=== PATIENT | female | born 1990 | race African-American/Black ===

== ENCOUNTER 2018-05-21 22:09 | Emergency (ER) | payer MEDICAID ==
[~2018-05-21] VITALS: Ht 162.6 cm; Wt 122.7 kg
[2018-05-21 22:14] VITALS: TEMP 98
[2018-05-21 22:57] LABS: COLLECTION METHOD CLEAN CATCH
[2018-05-21 23:00] LABS: BASO # 0.2 (0.0-0.2); BASO % 1.4 % (0.0-2.0); EOS # 0.6 (0.0-0.7); EOS % 5.2 % (0-4.0); GRAN # 5.8 (1.4-6.5); GRAN % 54.8 % (42.2-75.2); HEMOGLOBIN 10.9 g/dl (12.5-16.0); LYMPH # 3.4 (1.2-3.4); MEAN CELL VOLUME 76 fl (80.0-100.0); MEAN CORPUSCULAR HEMOGLOBIN 23 pg (27.0-31.0); MEAN CORPUSCULAR HGB CONC 30 g/dl (33.0-37.0); MONO # 0.7 (0.1-0.6); MONO % 6.3 % (1.7-9.3); PLATELET COUNT 343 K/mm3 (130-400); RED BLOOD COUNT 4.77 M/mm3 (4.10-5.30); REDCELL DISTRIBUTION WIDTH-CV 13.9 % (11.5-14.5)
[2018-05-21 23:01] LABS: HEMATOCRIT 36.2 % (37.0-47.0)
[2018-05-21 23:07] LABS: MUCOUS Present /lpf; PH 5 (5-8); URINE APPEARANCE Cloudy; URINE BACTERIA Many /hpf; URINE BILIRUBIN Negative (NEGATIVE); URINE BLOOD 1+ (NEGATIVE); URINE COLOR Yellow; URINE GLUCOSE Negative (NEGATIVE); URINE KETONE Negative (NEGATIVE); URINE LEUKOCYTE ESTERASE 1+ (NEGATIVE); URINE NITRATE Positive (NEGATIVE); URINE PROTEIN(semi-quant) Negative (NEGATIVE); URINE UROBILINOGEN Negative (NEGATIVE)
[2018-05-21 23:14] LABS: C-REACTIVE PROTEIN 2.8 mg/dL (0.0-0.9)
[2018-05-21 23:37] LABS: ALBUMIN 3.9 gm/dL (3.5-5.0); BILIRUBIN,TOTAL 0.4 mg/dL (0.0-1.0); CALCIUM 8.9 mg/dL (8.4-10.2); CREATININE, serum 0.77 mg/dL (0.52-1.25); POTASSIUM 3.9 mmol/L (3.4-5.0); TOTAL PROTEIN 7.7 gm/dL (6.4-8.2)
[2018-05-21] MEDS ORDERED: NATURAL IRON65 MG PO (23:45)
[2018-05-21] MEDS ORDERED: CEPHALEXIN500 M1 PO (23:53)
[2018-05-22 01:10] VITALS: BP 104/50; PULSE 80
== END 2018-05-22 01:10 | disposition home or self-care (01) ==
LOC: COL.ER 22:09
PROVIDERS: Family Medicine
DX: K43.9 Ventral hernia without obstruction or gangrene (principal)
CPT/HCPCS: J1170; J2405; J3010; J7030; Q9967

== ENCOUNTER 2018-06-01 10:30 | Day surgery (SDC) | payer MEDICAID ==
[2018-06-01] VITALS (9 sets, daily range): BP systolic 92–118; BP diastolic 38–63; PULSE 82–104; TEMP 97.5–98.7
[~2018-06-01] VITALS: Ht 162.6 cm; Wt 146.0 kg
[~2018-06-01 10:30] MED LIST: CEPHALEXIN500 M1 PO; NATURAL IRON65 MG PO
--- NOTE | 2018-06-01 11:19 | NUR ---
TO RM AT 1041- CALL LIGHT IN REACH NO ONE WITH PATIENT AT THIS TIME. PATIENT TALKING ON CELL PHONE WITH SISTER
[2018-06-01] MEDS ORDERED: MOTRIN 600600 MG/TAB PO (14:33)
[2018-06-01] MEDS ORDERED: COLACE 100100 MG/CAP PO (14:33)
[2018-06-01] MEDS ORDERED: PERCOCET 325 MG1 TA2 PO (14:33)
--- NOTE | 2018-06-01 15:30 | NUR ---
TO RM 5 PER CART FROM PACU. OPENED EYES AND FELL BACK TO SLEEP. NO DISTRESS NOTED, NO GRIMACE OF PAIN NOTED. 02 AT 2L PER NC, O2 SAT 94%. GHOTRA SET DRESSINGS CLEAN DRY INTACT.
--- NOTE | 2018-06-01 15:45 | NUR ---
AROUSES TO NAME AND FALLS BACK TO SLEEP. CONTINUES TO WEAR O2 AT 2L.
--- NOTE | 2018-06-01 16:00 | NUR ---
MORE AWAKE AND TOOK 2 SIPS OF WATER AND FELL BACK TO SLEEP.
--- NOTE | 2018-06-01 16:15 | NUR ---
TOOK A FEW MORE SIPS. REFUSES ANYTHING TO EAT 02 SAT 96% ON ROOM AIR. PATIENT TALKING ON CELL PHONE.
--- NOTE | 2018-06-01 16:45 | NUR ---
PATIENT RECEIVED PERCOCET 5MG 2 TABS
--- NOTE | 2018-06-01 17:06 | NUR ---
PATIENT TALKING ON PHONE. PATIENT STATED PAIN IS "BETTER" ATE 2PACKETS OF CRACKERS AND 2 GLASSES OF WATER.
--- NOTE | 2018-06-01 17:42 | NUR ---
UP AMBULATED TO BATHROOM SLOW STEADY STEPS. VOIDED AND AMBULATED BACK TO BED. ONCE BACK TO BE, REQUESTED TO LAY BACK DOWN. RECEIVED ADITI CRACKERS. TALKING ON PHONE AND EATING CRACKERS.
--- NOTE | 2018-06-01 18:06 | NUR ---
PATIENT STATED PAIN IS BETTER NOW THAT SHE IS RESTING. EATING ADITI CRACKERS AND TOLERATED WELL. 02 SAT 98% ON ROOM AIR.
--- NOTE | 2018-06-01 18:25 | NUR ---
GHOTRA SET OVER INCISION CLEAN DRY INTACT. NO BULDGING NOTED AT SITE. I ASK PATIENT HOW SHE WAS FEELING.IF SHE WANTED TO TRY TO GO HOME OR NEEDED TO REST. PATIENT STATED " I AM READY TO GO HOME" RECEIVED DISCHARGE INSTRUCTIONS AND VERBALIZED UNDERSTANDING DISCONTINUED IV AND INT.
--- NOTE | 2018-06-01 18:30 | NUR ---
ASSISTED PATIENT DRESSED INTO HER STREET CLOTHES.
--- NOTE | 2018-06-01 18:49 | NUR ---
DISCHARGED PER BY NURSING STAFF TO PRIVATE CAR IN CARE OF [facility]. PATIENT TRANSFERED FROM TO [facility] WITH ASSIST AND TOLERATED WELL.
== END 2018-06-01 18:52 | disposition home or self-care (01) ==
LOC: SDCO 10:30
DX: K43.9 Ventral hernia without obstruction or gangrene (principal); D64.9 Anemia, unspecified; E66.9 Obesity, unspecified; Z68.37 Body mass index [BMI] 37.0-37.9, adult
CPT/HCPCS: C1781; J0690; J1100; J1170; J1885; J2250; J2270; J2405; J2704; J3010; J7120

== ENCOUNTER 2018-12-26 16:20 | Emergency (ER) | payer MEDICAID ==
[~2018-12-26] VITALS: Ht 162.6 cm; Wt 151.8 kg
[~2018-12-26 16:20] MED LIST changes: +COLACE 100100 MG/CAP PO; +MOTRIN 600600 MG/TAB PO; +PERCOCET 325 MG1 TA2 PO
[2018-12-26 16:24] VITALS: TEMP 98.6
[2018-12-26 16:56] LABS: BASO # 0.1 (0.0-0.2); BASO % 0.9 % (0.0-2.0); EOS # 0.2 (0.0-0.7); EOS % 1.9 % (0-4.0); GRAN # 6.1 (1.4-6.5); GRAN % 60.5 % (42.2-75.2); LYMPH % 29.8 % (20.0-51.0); MEAN CELL VOLUME 76 fl (80.0-100.0); MEAN CORPUSCULAR HEMOGLOBIN 23 pg (27.0-31.0); MEAN CORPUSCULAR HGB CONC 30 g/dl (33.0-37.0); MEAN PLATELET VOLUME 11.8 fl (7.4-10.4); MONO # 0.7 (0.1-0.6); MONO % 6.4 % (1.7-9.3); PLATELET COUNT 327 K/mm3 (130-400); RED BLOOD COUNT 4.32 M/mm3 (4.10-5.30); REDCELL DISTRIBUTION WIDTH-CV 14.2 % (11.5-14.5)
[2018-12-26 17:04] LABS: ALANINE AMINOTRANSFERASE < 6 U/L (9-52); ALBUMIN 4.3 gm/dL (3.5-5.0); ALKALINE PHOSPHATASE 75 U/L (50-136); ANION GAP 10 mmol/L (7-16); AST,SGOT 29 U/L (15-37); BILIRUBIN,TOTAL 0.7 mg/dL (0.0-1.0); BLOOD UREA NITROGEN 8 mg/dL (7-17); C-REACTIVE PROTEIN 1.8 mg/dL (0.0-0.9); CALCIUM 9.1 mg/dL (8.4-10.2); CARBON DIOXIDE 21 mmol/L (22-30); CHLORIDE 105 mmol/L (98-107); CREATININE, serum 0.63 (0.52-1.25); GLUCOSE 107 mg/dL (74-106); POTASSIUM 4.2 mmol/L (3.4-5.0); SODIUM 136 mmol/L (137-145); TOTAL PROTEIN 8.3 gm/dL (6.4-8.2)
[2018-12-26 17:42] LABS: COLLECTION METHOD CLEAN CATCH
[2018-12-26 18:05] LABS: MUCOUS Present /lpf; PH 5 (5-8); URINE APPEARANCE Cloudy; URINE BACTERIA Occasional /hpf; URINE BILIRUBIN Negative (NEGATIVE); URINE BLOOD Negative (NEGATIVE); URINE COLOR Amber; URINE GLUCOSE Negative (NEGATIVE); URINE KETONE Negative (NEGATIVE); URINE LEUKOCYTE ESTERASE 1+ (NEGATIVE); URINE NITRATE Negative (NEGATIVE); URINE PROTEIN(semi-quant) Negative (NEGATIVE); URINE RBC None Seen /hpf; URINE UROBILINOGEN >=4.0 mg/dL (NEGATIVE)
[2018-12-26] MEDS ORDERED: MACROBID 1100 MG/CAP PO (18:59)
[2018-12-26] MEDS ORDERED: ZOFRAN ODT4 MG PO (19:02)
[2018-12-26 19:06] VITALS: BP 119/75; PULSE 77
== END 2018-12-26 19:08 | disposition home or self-care (01) ==
LOC: COL.ER 16:20
PROVIDERS: Emergency Medicine
DX: O23.91 Unspecified genitourinary tract infection in pregnancy, first trimester (principal); Z3A.01 Less than 8 weeks gestation of pregnancy
CPT/HCPCS: J2405; J3010; J7030

== ENCOUNTER 2019-02-27 14:54 | Emergency (ER) | payer MEDICAID ==
[~2019-02-27] VITALS: Ht 162.6 cm; Wt 148.6 kg
[~2019-02-27 14:54] MED LIST changes: +MACROBID 1100 MG/CAP PO; +ZOFRAN ODT4 MG PO
[2019-02-27 15:01] VITALS: TEMP 97.7
[2019-02-27 16:24] VITALS: BP 135/75; PULSE 95
== END 2019-02-27 16:25 | disposition home or self-care (01) ==
LOC: COL.ER 14:54
DX: O9A.212 Injury, poisoning and certain other consequences of external causes complicating pregnancy, second trimester (principal); S80.11XA Contusion of right lower leg, initial encounter; Z3A.16 16 weeks gestation of pregnancy; R40.2412 Glasgow coma scale score 13-15, at arrival to emergency department; W01.0XXA Fall on same level from slipping, tripping and stumbling without subsequent striking against object, initial encounter

== ENCOUNTER 2019-07-28 19:40 | Outpatient (CLI) | payer MEDICAID ==
[~2019-07-28] VITALS: Ht 160 cm; Wt 144.5 kg
--- NOTE | 2019-07-28 19:30 | NUR ---
HERE WITH C/O PELVIC PRESSURE. HX OF 1 HOUR LABOR. SVE 1/LONG/POST. EFM ON. INTACT [facility] NO COVID RISKS DENIES ABD PAIN OR CTXS NONE RECORDING AT 2010
[2019-07-28 19:40] VITALS: BP 114/63; PULSE 103; TEMP 98.2
[2019-07-28 20:18] VITALS: BP 114/63; PULSE 103; TEMP 98.2
== END 2019-07-28 20:37 | disposition home or self-care (01) ==
LOC: LDRO 19:40 → LDR 19:40 → LDRO 20:37
DX: O26.893 Other specified pregnancy related conditions, third trimester (principal); Z3A.37 37 weeks gestation of pregnancy
CPT/HCPCS: OP

== ENCOUNTER 2019-07-31 06:43 | Inpatient (IN) | payer MEDICAID ==
[2019-07-31] VITALS (62 sets, daily range): BP systolic 81–122; BP diastolic 42–74; PULSE 82–105; TEMP 97.9–98.7
[~2019-07-31] VITALS: Ht 162.7 cm; Wt 144.5 kg
[2019-07-31 07:49] LABS: BASO # 0.1 (0.0-0.2); BASO % 0.8 % (0.0-2.0); EOS # 0.2 (0.0-0.7); EOS % 2.6 % (0-4.0); GRAN # 5.2 (1.4-6.5); GRAN % 60.8 % (42.2-75.2); LYMPH # 2.5 (1.2-3.4); MEAN CELL VOLUME 75 fl (80.0-100.0); MEAN CORPUSCULAR HGB CONC 31 g/dl (33.0-37.0); MEAN PLATELET VOLUME 11.6 fl (7.4-10.4); MONO # 0.5 (0.1-0.6); MONO % 6.2 % (1.7-9.3); PLATELET COUNT 304 K/mm3 (130-400); RED BLOOD COUNT 4.02 M/mm3 (4.10-5.30); REDCELL DISTRIBUTION WIDTH-CV 14.4 % (11.5-14.5)
[2019-07-31 07:54] LABS: HEMATOCRIT 30.1 % (37.0-47.0); HEMOGLOBIN 9.2 g/dl (12.5-16.0); MEAN CORPUSCULAR HEMOGLOBIN 23 pg (27.0-31.0)
--- NOTE | 2019-07-31 08:00 | NUR ---
0650- Pt arrives on unit ambulatory for scheduled induction. Pt is planning on being by herself today, FOB is home with other children. Pt oriented to room. Instructed to change into gown. 0659- Pt into bed, EFM and TOCO on and tracing. VSS. Assessment completed. Plan of care discussed, questions answered. 0747- SVE by this RN, , intact. 0752- Pitocin started per protocol.
--- NOTE | 2019-07-31 18:40 | NUR ---
Contraction monitors not tracing well. Monitors adjusted. Patient state she is starting to feel contractions now in her lower abdomen.
--- NOTE | 2019-07-31 18:57 | NUR ---
1849: Dr. Ball at nurses station and reviews FHR strip. 1856: Dr. Ball at bedside. SVE 3-/70/-2. Plan of care discussed with patient. Will decrease the pitocin and start to increase again. Verbal order to turn pitocin down to 10 mu/min. 1899: Pitocin turned down to 10mu/min.
--- NOTE | 2019-07-31 19:02 | NUR ---
1902: Patient off monitors and to bathroom to void. Unmeasured void noted and patient back to bed. Patient standing at side of bed. FHR and contraction monitors adjusted.
--- NOTE | 2019-07-31 19:20 | NUR ---
1920: Patient gets self back in bed, resting wedged left. FHR and contraction monitors adjusted.
--- NOTE | 2019-07-31 22:00 | NUR ---
2150: Patient off monitor and to bathroom to void then back to bed. FHR and contraction monitors adjusted. Patient sitting up in bed.
--- NOTE | 2019-07-31 22:50 | NUR ---
2250: Dr. Ball at nurses station and reviews FHR and contraction pattern on strip.
--- NOTE | 2019-07-31 23:43 | NUR ---
Dr. Ball remains at nurses station and watching FHR on monitor.
[2019-08-01] VITALS (88 sets, daily range): BP systolic 83–143; BP diastolic 50–78; PULSE 82–120; TEMP 97.6–98.4
--- NOTE | 2019-08-01 | NUR ---
Patient states contractions are becoming stronger and breathing controlled through contractions. Patient instructed to call out with increased vaginal or rectal pressure. Call light in reach.
--- NOTE | 2019-08-01 00:30 | NUR ---
Patient states the contractions are stronger and lasting longer. Patient breathing calm and controlled through contractions.
--- NOTE | 2019-08-01 00:58 | NUR ---
Dr. Ball remains at nurses station and reviews FHR and contractions on monitor. 0058: At bedside with Dr. Ball. SVE by Dr. Ball , scalp stimulation noted with SVE. Pericare provided and patient sitting up in bed. Patient continues breathing controlled through contractions.
--- NOTE | 2019-08-01 01:28 | NUR ---
FHR accelerations from baseline of 120bpm up to 145 bpm then down to 110 bpm for 50 seconds, returning to baseline of 120 bpm.
--- NOTE | 2019-08-01 03:00 | NUR ---
0300: Patient sleeping upon entering room. Patient awakened to review plan of care and do SVE. SVE, no change noted. Patient states she is still feeling contractions but they are not as strong. Dr. Ball called and further orders received.
--- NOTE | 2019-08-01 03:30 | NUR ---
Patient far right lateral for comfort to sleep. FHR and contraction monitors repositioned. 0320: Pitocin off per Dr. Ball order. 0332: Pen G started for PROM of 18 hours.
--- NOTE | 2019-08-01 04:00 | NUR ---
Patient far right lateral and sleeping. Contraction monitor adjusted but no contractions palpated at this time.
--- NOTE | 2019-08-01 05:20 | NUR ---
Dr. Ball at nurses station and review R strip. 0520: Dr. Ball and this RN at bedside. Bedside ultrasound and vertex position verified. Plan of care reviewed with patient. Will continue with P.O. cytotec. Patient verbalizes understanding.
--- NOTE | 2019-08-01 06:10 | NUR ---
Patient states she is feeling a contraction. Contraction monitors moved and tracing. Contractions palpate mild. 0611: Patient off monitors and up to bathroom to void. Patient standing at side of bed where monitors adjusted.
--- NOTE | 2019-08-01 13:40 | NUR ---
[id number] PATIENT OFF EFM WALKING IN ROOM PER DR VALDEZ
--- NOTE | 2019-08-01 14:12 | NUR ---
PATIENT REFUSED TO USE HAT TO MEASURE URINE
--- NOTE | 2019-08-01 18:30 | NUR ---
Off monitor, up to bathroom. Pt decline to measure urine, stating "I can't pee with that thing in there."
--- NOTE | 2019-08-01 22:55 | NUR ---
Pt requests to get up to walk. Pt agrees to return to room for monitoring in 1/2hr.
--- NOTE | 2019-08-01 23:25 | NUR ---
pt refuses to go back into bed for monitoring. Doppler 130.
[2019-08-02] VITALS (39 sets, daily range): BP systolic 82–118; BP diastolic 43–70; PULSE 75–105; TEMP 97.7–98.7
--- NOTE | 2019-08-02 03:30 | NUR ---
off monitor, up to bathroom. Declines to measure urine. Back tp bed, assisted into position of comfort. 0355 Pt states "I feel pain in my butt, like in my rectum" To back for SVE, SVE unchanged. States "now I have to go pee again" off monitor, into bathroom. Back to bed, assisted into position of comfort.
--- NOTE | 2019-08-02 06:25 | NUR ---
Report received from Giorgi LARA. 0635: This RN at bedside, FHR monitor paper had ran out 06 and replaced at this time. Patient adjusted to left lateral. 0646: Patient begins to vomit at this time and FHR difficult to trace. Blood noted in vomit. Patient off monitor to void and pericare done. 0656: Patient resting in bed and plan of care discussed.
--- NOTE | 2019-08-02 07:15 | NUR ---
Dr. Ball at bedside and notified and shown bloody vomit. Physician states "most likely just from irritation". Dr. Ball assesses patient and FHR strip. Discussing plan of care with patient. 0725: SVE per physician unchanged. Dr. Ball discusses that patient can either try to get an epidural and keep trying pitocin or . Dr. Ball discusses the need for something different and that this plan of care is not working. Patient agrees to do csection at this time. Physician discussing plan and risks associated with csection. Questions answered and patient very anxious at this time. Patient prepped for surgery. 0802: Patient off monitor and ambulates to OR with sister as support.
[2019-08-03 06:21] LABS: HEMATOCRIT 28.4 % (37.0-47.0); HEMOGLOBIN 8.6 g/dl (12.5-16.0)
[2019-08-03 07:22] VITALS: BP 112/76; PULSE 77; TEMP 97.8
[2019-08-03 16:33] VITALS: BP 107/73; PULSE 72; TEMP 97.8
[2019-08-03 20:30] VITALS: BP 99/71; PULSE 88; TEMP 98
[2019-08-04 08:13] VITALS: BP 120/62; PULSE 78; TEMP 97.9
[2019-08-04] MEDS ORDERED: IBU600 MG PO (11:17)
[2019-08-04] MEDS ORDERED: PERCOCET 325 MG1 TA2 PO (11:18)
[2019-08-04] MEDS ORDERED: SENNA-S 50 MG-81 TAB PO (11:19)
== END 2019-08-04 12:20 | disposition home or self-care (01) | DRG 788 ==
LOC: LDR 06:43 → OB 08:03
PROVIDERS: ADMIT Obstetrics & Gynecology
PROC: 10D00Z1 Extraction of Products of Conception, Low, Open Approach (ICD-10-PCS; principal; 2019-07-31)
DX: O36.5930 Maternal care for other known or suspected poor fetal growth, third trimester, not applicable or unspecified (principal); O99.214 Obesity complicating childbirth; O99.02 Anemia complicating childbirth; E66.9 Obesity, unspecified; D64.9 Anemia, unspecified; Z3A.38 38 weeks gestation of pregnancy; Z37.0 Single live birth
CPT/HCPCS: J0690; J1885; J2370; J2405; J2540; J2590; J3010; J7120

== ENCOUNTER 2022-06-22 22:27 | Emergency (ER) | payer MEDICAID ==
[~2022-06-22] VITALS: Ht 162.6 cm; Wt 127.3 kg
[~2022-06-22 22:27] MED LIST changes: +IBU600 MG PO; +SENNA-S 50 MG-81 TAB PO
[2022-06-22 22:32] VITALS: TEMP 98.7
[2022-06-22 22:54] LABS: HEMOGLOBIN 10.3 g/dl (12.5-16.0); MEAN CELL VOLUME 77 fl (80.0-100.0); MEAN CORPUSCULAR HEMOGLOBIN 23 pg (27-31); MEAN CORPUSCULAR HGB CONC 30 g/dl (33.0-37.0); PLATELET COUNT 381 K/mm3 (130-400); RED BLOOD COUNT 4.41 M/mm3 (4.10-5.30); REDCELL DISTRIBUTION WIDTH-CV 14.5 % (11.5-14.5)
[2022-06-22 22:56] LABS: HEMATOCRIT 33.9 % (37.0-47.0)
[2022-06-22 23:13] LABS: ALANINE AMINOTRANSFERASE 11 U/L (0-55); ALBUMIN 3.9 gm/dL (3.5-5.0); ALKALINE PHOSPHATASE 89 U/L (40-150); ANION GAP 14 mmol/L (7-16); AST,SGOT 13 U/L (5-34); BILIRUBIN,TOTAL 0.5 mg/dL (0.2-1.2); BLOOD UREA NITROGEN 10 mg/dL (7-19); CALCIUM 8.8 mg/dL (8.4-10.2); CARBON DIOXIDE 20 mmol/L (22-29); CHLORIDE 106 mmol/L (98-107); CREATININE, serum 1.06 mg/dL (0.57-1.11); GLUCOSE 155 mg/dL (70-99); SODIUM 140 mmol/L (136-145); TOTAL PROTEIN 8.4 gm/dL (6.2-8.1)
[2022-06-22 23:16] LABS: BAND 1 % (0-10); EOSINOPHIL 3 % (0-4); HYPOCHROMIA 3+; LYMPHOCYTE 41 % (20.0-51.0); MICROCYTOSIS 1+; NEUTROPHILS 50 % (42.0-75.2); PLATELET ESTIMATE NORMAL (NORMAL); TARGET CELLS 1+
[2022-06-22 23:17] LABS: STOMATOCYTE 1+
[2022-06-22 23:36] LABS: TROPONIN-I < 0.010 ng/mL (0.00-0.033)
[2022-06-22 23:38] LABS: POTASSIUM 2.9 mmol/L (3.5-4.5)
[2022-06-23 01:22] LABS: TRICYCLIC ANTIDEPRESS URINE NEGATIVE
[2022-06-23] MEDS ORDERED: KLOR-CON20 MEQ PO (01:51)
[2022-06-23 01:55] VITALS: BP 118/75; PULSE 96
== END 2022-06-23 02:05 | disposition home or self-care (01) ==
LOC: COL.ER 22:27
PROVIDERS: Personal Emergency Response Attendant
DX: R41.82 Altered mental status, unspecified (principal); T40.725A Adverse effect of synthetic cannabinoids, initial encounter; D72.829 Elevated white blood cell count, unspecified; Z28.310 Unvaccinated for COVID-19
CPT/HCPCS: J7030